=== PATIENT | female | born 1985 | race Caucasian/White ===

== ENCOUNTER 2024-02-11 16:35 | Emergency (ER) | payer MEDICAID, SELFPAY ==
--- NOTE | 2024-02-11 16:40 | XRR_ITS ---
PROCEDURE INFORMATION: Exam: XR Chest Exam date and time: 02/11/2024 5:28 PM Age: 38 years old Clinical indication: Cough TECHNIQUE: Imaging protocol: Radiologic exam of the chest. Views: 1 view. COMPARISON: No relevant prior studies available. FINDINGS: Lungs: No consolidation. Pleural spaces: No large pleural effusion. No pneumothorax. Heart/Mediastinum: Unremarkable. No cardiomegaly. Bones/joints: No acute abnormality. XR/XR chest 1V portable [id number] IMPRESSION: No acute findings.
[2024-02-11 16:55] VITALS: BP 105/70; PULSE 89; TEMP 36.6; O2SAT 98; BMI 29.2
[2024-02-11 17:13] VITALS: BP 130/84; O2SAT 97
--- NOTE | 2024-02-11 17:28 | W.ED.URI ---
HPI - URI/Sore Throat General: Chief Complaint: Upper Respiratory Infection Stated Complaint: Cough, ear infection, congestion Time Seen by Provider: 02/11/24 16:38 Source: patient Mode of arrival: ambulatory Limitations: no limitations History of Present Illness: Patient is a 38-year-old female who presents to the ED today with a main complaint of a cough over the past few days. Patient states she has had a little sinus pain/pressure/nasal congestion. No fevers. She does have a history of asthma. She states she rarely has to use her albuterol inhaler but has been using it more frequently over the past few days. Has not really seemed to help. No sick contacts. No abdominal pain, vomiting, diarrhea. No hemoptysis. She is not having any chest pain. Vital signs are stable upon arrival. MD elicited complaint: cough Onset (ago): day(s) Severity: moderate Description of mucous: clear Able to tolerate fluids by mouth: Yes Exacerbating factors: nothing Relieving factors: nothing Associated symptoms: Deny chills, chest pain, diarrhea, fever(s), headache(s) or vomiting Treatments prior to arrival: none Related Data Previous Rx's Medication Instructions Recorded prednisone 10 mg tablet 10 mg PO DAILY 6 days #20 tabs 02/11/24 promethazine-DM 6.25 mg-15 mg/5 mL 5 ml PO Q6H PRN cough #100 mL 02/11/24 oral syrup Allergies Allergy/AdvReac Type Severity Reaction Status Date / Time No Known Allergies Allergy Verified 02/11/24 16:59 Review of Systems Const: Denies: fever(s), chills, body aches, fatigue or malaise Card: Denies: chest pain, palpitations, irregular heart rhythm, edema, swelling of feet/ankles, lightheadedness, syncope, pre-syncope, orthopnea, leg pain with exertion or acrocyanosis Resp: Reports: dyspnea, non-productive cough and chest congestion; Denies: wheezing or hemoptysis GI: Denies: vomiting or diarrhea Musc: Denies: neck pain or back pain Skin/Breast: Denies: rash Neuro: Denies: headache(s) Physical Exam Const: COMMON NORMALS: average body habitus, patient oriented x3, no limitations, healthy appearing, alert and well nourished GENERAL APPEARANCE: cooperative and in distress (mildly ill appearing; vitals normal) ORIENTATION/CONSCIOUSNESS: Yes awake, Yes oriented to person, Yes oriented to place and Yes oriented to time HENMT: COMMON NORMALS: normocephalic, atraumatic, external ears normal, EAC's normal, TM's normal bilaterally, Normal nasal mucous membranes and turbinates present and oropharynx normal HEAD & SCALP: normal to inspection, normocephalic and atraumatic FACE & SINUS: normal facial exam and sinuses nontender NOSE: Normal nasal mucous membranes and turbinates present EXTERNAL EAR: Yes external ears normal EXTERNAL AUDITORY CANAL: EAC's normal TYMPANIC MEMBRANE: TM's normal bilaterally MOUTH: Normal oral and palatal mucosa present and lip normal THROAT: posterior oropharynx normal and tonsils normal Neck/C-Spine: COMMON NORMALS: no lymphadenopathy Resp: COMMON NORMALS: normal respiratory effort and clear to auscultation bilaterally AUSCULTATION: clear to auscultation bilaterally Cardio: COMMON NORMALS: regular rate and regular rhythm RATE: regular rate RHYTHM: regular rhythm Neuro: COMMON NORMALS: patient oriented x3 SENSORIUM/ORIENTATION: Yes alert, Yes oriented to person, Yes oriented to place and Yes oriented to time Skin: COMMON NORMALS: no rashes or lesions noted GENERAL SKIN EXAM: no rashes or lesions noted Course Vital Signs: Vital signs: Vital Signs Temperature 97.9 F 02/11/24 16:55 Pulse Rate 89 02/11/24 16:55 Blood Pressure 130/84 02/11/24 17:13 Pulse Oximetry 97 02/11/24 17:13 Oxygen Delivery Me thod Room Air 02/11/24 16:55 MDM - URI/Sore Throat Medical Decision Making Patient appears in no acute distress. Her vital signs are stable. CXR personal interpretation is unremarkable. Respiratory panel collected and pending. She will be treated with steroids given her history of asthma. She is requesting something to help with her cough. Return to ED precautions given. Differential Diagnosis Likely upper respiratory infection, viral infection and bronchitis Medical Records I reviewed the patient's medical records. XR interpretation done by ED provider, pending radiology final review Discharge Plan Discharge Patient Disposition: Home Clinical Impression: Upper respiratory infection Qualifiers: URI type: unspecified URI Qualified Code(s): J06.9 - Acute upper respiratory infection, unspecified Condition: Stable Prescriptions: New promethazine-DM 6.25-15 mg/5 mL syrup 5 ml PO Q6H PRN (Reason: cough) Qty: 100 0RF prednisone 10 mg tablet 10 mg PO DAILY 6 Days Qty: 20 0RF Rx Instructions: Take 5 tabs on day 1-2, 4 tabs on day 3, 3 tabs on day 4, 2 tabs on day 5, and 1 tab on day 6 Discharge Orders: Discharge ED (Routine); Ordered 02/11/24 Ordered By: Louisa Jones Patient Instructions: Upper Respiratory Infection (DC) Coding Level of Care Code ED Lead Investigator for Eliot Trujillo
[2024-02-11] MEDS: methylPREDNISolone sod succ 125 mg/2 mL INJ IM (18:14)
[2024-02-11] MEDS: benzonatate 100 mg Capsule 200 MG PO (18:22)
[2024-02-11 18:32] VITALS: BP 108/77; PULSE 74; O2SAT 99
[2024-02-11 19:06] LABS: Adenovirus Not Detected (NOT DETECT); Chlamydia Pneumoniae Not Detected (NOT DETECT); Coronavirus 229E,HKU1,NL63,OC4 Not Detected (NOT DETECT); Human Metapneumovirus Not Detected (NOT DETECT); Human Rhinovirus/Enterovirus Not Detected (NOT DETECT); Influenza A Not Detected (NOT DETECT); Influenza A H1 Not Detected (NOT DETECT); Influenza A H1-2009 Not Detected (NOT DETECT); Influenza A H3 Not Detected (NOT DETECT); Influenza B Not Detected (NOT DETECT); Mycoplasma Pneumoniae Not Detected (NOT DETECT); Parainfluenza Virus Type 1 Not Detected (NOT DETECT); Parainfluenza Virus Type 2 Not Detected (NOT DETECT); Parainfluenza Virus Type 3 Not Detected (NOT DETECT); Parainfluenza Virus Type 4 Not Detected (NOT DETECT); Respiratory Syncytial Virus A Not Detected (NOT DETECT); SARS-COV-2 Not Detected (NOT DETECT)
[2024-02-11 19:09] LABS: Respiratory Syncytial Virus B Detected (NOT DETECT)
--- NOTE | 2024-02-11 19:28 | PC.NURSE ---
results of respiratory panel communicated to in chart, Williams Garcia, by this RN at 1929
== END 2024-02-11 18:33 | disposition home or self-care (01) ==
PROVIDERS: Emergency Provider Physician Assistant
DX: J06.9 Acute upper respiratory infection, unspecified (principal)
CPT/HCPCS: 71045; 87486; 87581; 87633; 96372; 99284; J2919